=== PATIENT | male | born 1980 | race Caucasian/White ===

== ENCOUNTER 2016-10-13 10:05 | Emergency (ER) | payer OTHER ==
[2016-10-13] MEDS ORDERED: Ondansetron 4 MG/2 ML SDV IVPUSH ONE (10:46)
[2016-10-13] MEDS ORDERED: HYDROmorphone 1 MG/ML Syringe IVPUSH ONE ×2 (10:47→11:53)
[2016-10-13] MEDS: Sodium Chloride 0.9% 10 ML Syringe FLUSH PRN ×2 (10:55→12:01)
--- NOTE | 2016-10-13 10:56 | EDM.PDOC ---
ED HPI LOWER BACK PAIN/INJURY - General Chief Complaint: Back Pain or Injury Stated Complaint: BACK AND LT SIDE PAIN Time Seen by Provider: 10/13/16 10:56 Source: Reports: Patient, Family History Limitations: Reports: No limitations - History of Present Illness INITIAL COMMENTS - FREE TEXT/NARRATIVE: pt arrived with very severe pain in in the lower back. He is now having acute pain the left abdoman and flank. Timing/Duration: Reports: Hour(s):, Getting worse Location: Reports: lower, other (pt has a known disc in the L4_L5 area. ) Quality: Reports: Sharp Severity: moderate Place: other (no definite injury.) Associated Symptoms: Reports: Denies symptoms - Related Data Allergies/ADRs: Allergies Allergy/AdvReac Type Severity Reaction Status Date / Time eggs Allergy Severe Nausea Uncoded 06/17/16 12:28 nuts Allergy Severe Anaphylactic Uncoded 06/17/16 12:28 Shock Home Meds: Home Meds Allopurinol [Zyloprim] 300 mg PO DAILY 03/27/13 [History] Lisinopril 20 mg PO DAILY 03/27/13 [History] Gluc HCl/Csa/Clair Hy/Hyalur Ac [Glucosamine Chondroitin] 2 tab PO BEDTIME [History] Vit C/George & Celery Ex/Grp E [Tart George] 2 cap PO BEDTIME 04/16/15 [History] atorvaSTATin [Lipitor] 40 mg PO BEDTIME 04/16/15 [History] buPROPion [Wellbutrin XL] 150 mg PO BEDTIME 10/13/16 [History] metFORMIN [Glucophage] 1,000 mg PO BIDMEALS 10/13/16 [History] Past Medical History Cardiovascular History: Reports: High cholesterol, Hypertension Neurological History: Reports: Concussion Endocrine/Metabolic History: Reports: Diabetes, type II - Infectious Disease History Infectious Disease History: Reports: Chicken pox - Past Surgical History Other HEENT Surgeries/Procedures: adnoids GI Surgical History: Reports: Appendectomy Other Musculoskeletal Surgeries/Procedures:: hx gout r knee drained recently. Finished predensone first of Feb. Social & Family History - Tobacco Use Smoking Status *Q: Never Smoker Second Hand Smoke Exposure: No - Caffeine Use Caffeine Use: Reports: Coffee, Soda, Tea - Alcohol Use Days Per Week of Alcohol Use: 0 - Recreational Drug Use Recreational Drug Use: No ED ROS GENERAL - Review of Systems Review Of Systems: See Below Constitutional: Reports: decreased appetite HEENT: Reports: No symptoms Respiratory: Reports: No Symptoms Cardiovascular: Reports: No symptoms Endocrine: Reports: no symptoms GI/Abdominal: Reports: Abdominal pain, Other (pt has flank pain on the left and this pain extends down the abdoman to the groin. He has not had any vomiting . He had a bm yesterday. He has no urine symptoms. ) : Reports: no symptoms Musculoskeletal: Reports: other ( tender in the left cva area. ) Skin: Reports: no symptoms ED EXAM,LOWER BACK PAIN/INJURY - Physical Exam Exam: See Below Text/Narrative:: pt arrived with very severe back pain and left flank He states the flank pain radiates down the abdoman. Exam Limited By: No limitations General Appearance: alert, severe distress Ears: normal TMs Nose: normal inspection Throat/Mouth: Normal inspection Head: atraumatic Neck: normal inspection Respiratory/Chest: no respiratory distress Cardiovascular: regular rate, rhythm GI/Abdominal: tender, other ( no true guarding present. ) Rectal (Males) Exam: Deferred Back Exam: CVA tenderness (L) Extremities: normal inspection Course - Vital Signs Last Recorded V/S: Last Vital Signs Temp 36.4 C 10/13/16 10:25 Pulse 81 10/13/16 12:03 Resp 15 10/13/16 10:25 BP 149/95 H 10/13/16 12:03 Pulse Ox 93 L 10/13/16 12:03 - Orders/Labs/Meds Orders: Active Orders 24 hr Category Date Time Status Iopamidol [Isovue-300 (61%)] Med 10/13/16 12:31 Active 150 ml IV . DIRECTED PRN Sodium Chloride 0.9% [Normal Saline] 85 ml Med 10/13/16 12:45 Active IV ASDIRECTED Sodium Chloride 0.9% [Saline Flush] Med 10/13/16 10:45 Active 10 ml FLUSH ASDIRECTED PRN Saline Lock Insert [OM.PC] Routine Oth 10/13/16 10:45 Ordered Medication Orders Sodium Chloride (Normal Saline) 85 mls @ 3.5 mls/sec IV ASDIRECTED LUDA Stop: 10/13/16 23:00 Last Admin: 10/13/16 12:43 Dose: 3.5 mls/sec Iopamidol (Isovue-300 (61%)) 150 ml IV . DIRECTED PRN PRN Reason: RADIOLOGY EXAM Stop: 10/14/16 12:32 Last Admin: 10/13/16 12:43 Dose: 150 ml Sodium Chloride (Saline Flush) 10 ml FLUSH ASDIRECTED PRN PRN Reason: Keep Vein Open Last Admin: 10/13/16 12:01 Dose: 10 ml Admin: 10/13/16 10:55 Dose: 10 ml Labs: Laboratory Tests 10/13/16 10/13/16 10/13/16 Range/Units 10:44 10:50 10:50 WBC 8.8 (4.5-11.0) K/uL RBC 4.99 (4.30-5.90) M/uL Hgb 15.1 H (12.0-15.0) g/dL Hct 42.2 (40.0-54.0) % MCV 85 (80-98) fL MCH 30 (27-31) pg MCHC 36 (32-36) % Plt Count 213 (150-400) K/uL Neut % (Auto) 62 (36-66) % Lymph % (Auto) 26 (24-44) % [place] % (Auto) 9 H (2-6) % Eos % (Auto) 3 (2-4) % Baso % (Auto) 1 (0-1) % Sodium 139 L (140-148) mmol/L Potassium 4.2 (3.6-5.2) mmol/L Chloride 103 (100-108) mmol/L Carbon Dioxide 29 (21-32) mmol/L Anion Gap 11.2 (5.0-14.0) mmol/L BUN 14 (7-18) mg/dL Creatinine 1.1 (0.8-1.3) mg/dL Est Cr Clr Drug Dosing 105.86 mL/min Estimated GFR (MDRD) > 60 (>60) Glucose 123 H (74-106) mg/dL Calcium 8.9 (8.5-10.1) mg/dL Total Bilirubin 0.5 D (0.2-1.0) mg/dL AST 27 (15-37) U/L ALT 62 (12-78) U/L Alkaline Phosphatase 52 (46-116) U/L C-Reactive Protein (0.0-0.3) mg/dL Total Protein 7.9 (6.4-8.2) g/dL Albumin 4.2 (3.4-5.0) g/dL Globulin 3.7 H (2.3-3.5) g/dL Albumin/Globulin Ratio 1.1 L (1.2-2.2) Urine Color Yellow Urine Appearance Clear Urine pH 6.0 (4.5-8.0) Ur Specific [place] 1.010 (1.008-1.030) Urine Protein Negative (NEGATIVE) mg/dL Urine Glucose (UA) Normal (NEGATIVE) mg/dL Urine Ketones Negative (NEGATIVE) mg/dL Urine Occult Blood Negative (NEGATIVE) Urine Nitrite Negative (NEGAITVE) Urine Bilirubin Negative (NEGATIVE) Urine Urobilinogen 1 (NORMAL) mg/dL Ur Leukocyte Esterase Negative (NEGATIVE) Urine RBC Not seen (0-5) Urine WBC Not seen (0-5) Ur Epithelial Cells Not seen Amorphous Sediment Rare Urine Bacteria Not seen Urine Mucus Not seen 10/13/16 Range/Units 10:50 WBC (4.5-11.0) K/uL RBC (4.30-5.90) M/uL Hgb (12.0-15.0) g/dL Hct (40.0-54.0) % MCV (80-98) fL MCH (27-31) pg MCHC (32-36) % Plt Count (150-400) K/uL Neut % (Auto) (36-66) % Lymph % (Auto) (24-44) % [place] % (Auto) (2-6) % Eos % (Auto) (2-4) % Baso % (Auto) (0-1) % Sodium (140-148) mmol/L Potassium (3.6-5.2) mmol/L Chloride (100-108) mmol/L Carbon Dioxide (21-32) mmol/L Anion Gap (5.0-14.0) mmol/L BUN (7-18) mg/dL Creatinine (0.8-1.3) mg/dL Est Cr Clr Drug Dosing mL/min Estimated GFR (MDRD) (>60) Glucose (74-106) mg/dL Calcium (8.5-10.1) mg/dL Total Bilirubin (0.2-1.0) mg/dL AST (15-37) U/L ALT (12-78) U/L Alkaline Phosphatase (46-116) U/L C-Reactive Protein 0.62 H (0.0-0.3) mg/dL Total Protein (6.4-8.2) g/dL Albumin (3.4-5.0) g/dL Globulin (2.3-3.5) g/dL Albumin/Globulin Ratio (1.2-2.2) Urine Color Urine Appearance Urine pH (4.5-8.0) Ur Specific [place] (1.008-1.030) Urine Protein (NEGATIVE) mg/dL Urine Glucose (UA) (NEGATIVE) mg/dL Urine Ketones (NEGATIVE) mg/dL Urine Occult Blood (NEGATIVE) Urine Nitrite (NEGAITVE) Urine Bilirubin (NEGATIVE) Urine Urobilinogen (NORMAL) mg/dL Ur Leukocyte Esterase (NEGATIVE) Urine RBC (0-5) Urine WBC (0-5) Ur Epithelial Cells Amorphous Sediment Urine Bacteria Urine Mucus Meds: Medications Generic Name Dose Route Start Last Admin Trade Name Freq PRN Reason Stop Dose Admin Sodium Chloride 85 mls @ 3.5 mls/sec 10/13/16 12:45 10/13/16 12:43 Normal Saline IV 10/13/16 23:00 3.5 mls/sec ASDIRECTED LUDA Administration Iopamidol 150 ml 10/13/16 12:31 10/13/16 12:43 Isovue-300 (61%) IV 10/14/16 12:32 150 ml . DIRECTED PRN Administration RADIOLOGY EXAM Sodium Chloride 10 ml 10/13/16 10:45 10/13/16 12:01 Saline Flush FLUSH 10 ml ASDIRECTED PRN Administration Keep Vein Open Discontinued Medications Generic Name Dose Route Start Last Admin Trade Name Freq PRN Reason Stop Dose Admin Hydromorphone HCl 1 mg 10/13/16 10:47 10/13/16 10:54 Dilaudid IVPUSH 10/13/16 10:48 1 mg ONETIME ONE Administration Hydromorphone HCl 1 mg 10/13/16 11:53 10/13/16 12:00 Dilaudid IVPUSH 10/13/16 11:54 1 mg ONETIME ONE Administration Hydromorphone HCl 1 mg 10/13/16 14:04 Dilaudid IM 10/13/16 14:05 ONETIME ONE Lorazepam 0.5 mg 10/13/16 11:52 10/13/16 11:57 Ativan IVPUSH 10/13/16 11:53 0.5 mg ONETIME ONE Administration Ondansetron HCl 4 mg 10/13/16 10:46 10/13/16 10:53 Zofran IVPUSH 10/13/16 10:47 4 mg ONETIME ONE Administration - Re-Assessments/Exams Free Text/Narrative Re-Assessment/Exam: 10/13/16 14:11 pt arrived with pain the left flank area and radiating down into the abdoman. He has a known disc at L4_L5 Departure - Departure Time of Disposition: 14:12 Disposition: Home, Self-Care 01 Condition: fair Clinical Impression: Bulging of intervertebral disc between L4 and L5 Referrals: Sravan Eng MD [Primary Care Provider] - Forms: ED Department Discharge Care Plan Goals: cont miralax, high fiber diet, push fluids, percocet 5/325 q6h prn for pain, cont motrin and flexeril 10mg hs, lidocaine patches to low lumbar area. keep appt with Dr Farrell for Monday. - My Orders Last 24 Hours: My Active Orders 10/13/16 10:45 Sodium Chloride 0.9% [Saline Flush] 10 ml FLUSH ASDIRECTED PRN Saline Lock Insert [OM.PC] Routine 10/13/16 12:31 Iopamidol [Isovue-300 (61%)] 150 ml IV . DIRECTED PRN 10/13/16 12:45 Sodium Chloride 0.9% [Normal Saline] 85 ml IV ASDIRECTED - Assessment/Plan Last 24 Hours: My Active Orders 10/13/16 10:45 Sodium Chloride 0.9% [Saline Flush] 10 ml FLUSH ASDIRECTED PRN Saline Lock Insert [OM.PC] Routine 10/13/16 12:31 Iopamidol [Isovue-300 (61%)] 150 ml IV . DIRECTED PRN 10/13/16 12:45 Sodium Chloride 0.9% [Normal Saline] 85 ml IV ASDIRECTED
[2016-10-13] MEDS ORDERED: LORazepam 2 MG/ML MDV IVPUSH ONE (11:52)
[2016-10-13 12:05] VITALS: BP 149/95
[2016-10-13] MEDS ORDERED: Iopamidol 612 MG/ML 150 ML Bottle IV PRN (12:31)
--- NOTE | 2016-10-13 13:33 | CT ---
Abdomen Pelvis w Cont HISTORY: Pain. Dose: DLP 1201 COMPARISON: None. There is diffuse fatty infiltration of the liver. No focal liver lesion seen. The spleen, pancreas, adrenal glands and abdominal aorta appear normal kidneys unremarkable. No bowel obstruction. Pelvis appears unremarkable. Impression: 1. No direct findings for pain. 2. Known disc bulge or protrusion at L4-L5 seen on recent MRI scan of the lumbar spine.
[2016-10-13] MEDS ORDERED: HYDROmorphone 1 MG/ML Syringe IM ONE (14:04)
== END 2016-10-13 14:26 | disposition home or self-care (01) ==
LOC: JP.ED 10:05
DX: M51.26 Other intervertebral disc displacement, lumbar region (principal); I10 Essential (primary) hypertension; E78.00 Pure hypercholesterolemia, unspecified; E11.9 Type 2 diabetes mellitus without complications; Z90.49 Acquired absence of other specified parts of digestive tract; Z79.899 Other long term (current) drug therapy; Z79.84 Long term (current) use of oral hypoglycemic drugs; Z91.018 Allergy to other foods
CPT/HCPCS: 36415; 74177; 80053; 81001; 85025; 86140; 96374; 96375; 96376; 99284; J1170; J2060; J2405; J7030; J7050

== ENCOUNTER 2023-07-31 06:54 | Day surgery (SDC) | payer BC, OTHER ==
[2023-07-31] MEDS ORDERED: Midazolam 1 MG/ML 2 ML SDV ONE (07:09)
[2023-07-31] MEDS ORDERED: Propofol 200 MG/20 ML SDV ONE (07:09)
[2023-07-31] MEDS ORDERED: fentaNYL 100 MCG/2 ML SDV ONE (07:09)
[2023-07-31] MEDS: Lactated Ringers 1,000 ML IV SCH (07:26)
[2023-07-31 07:41] LABS: HEMATOCRIT 43.6 % (38.4-49.7); HEMOGLOBIN 15.5 g/dL (12.9-16.9); MEAN CORPUSCULAR HEMOGLOBIN 31.1 pg (31.6-35.5); MEAN CORPUSCULAR HGB CONC 35.6 g/dL (31.6-35.5); MEAN CORPUSCULAR VOLUME 87.4 fL (81.4-99.0); RED BLOOD CELL COUNT 4.99 M/uL (4.14-5.76); WHITE BLOOD CELL COUNT,WBC 9.1 K/uL (3.2-11.0)
[2023-07-31 08:01] LABS: A/G RATIO 1.1 (1.2-2.2); ALANINE AMINOTRANSFERASE,ALT 46 U/L (12-78); ALBUMIN 3.9 g/dL (3.4-5.0); ALKALINE PHOSPHATASE 52 U/L (46-116); ANION GAP 12.1 mmol/L (5.0-14.0); ASPARTATE AMNIOTRANSFERASE,AST 17 U/L (15-37); BILIRUBIN TOTAL 0.9 mg/dL (0.2-1.0); BLOOD UREA NITROGEN,BUN 12 mg/dL (7-18); CALCIUM 8.4 mg/dL (8.5-10.1); CARBON DIOXIDE,CO2 29 mmol/L (21-32); CHLORIDE,CL 100 mmol/L (100-108); CREATININE 1.3 mg/dL (0.8-1.3); EST CRCL DRUG DOSING (CG) 83.43 mL/min; ESTIMATED GFR 69 mL/min (>60); GLUCOSE RANDOM 144 mg/dL (74-106); POTASSIUM,K 4.1 mmol/L (3.6-5.2); PROTEIN TOTAL,TP 7.5 g/dL (6.4-8.2); SODIUM,NA 137 mmol/L (140-148)
[2023-07-31 10:13] VITALS: BP 111/66; PULSE 68
== END 2023-07-31 10:25 | disposition home or self-care (01) ==
LOC: JP.SDS 06:54
PROVIDERS: ATTEND Student in an Organized Health Care Education/Training Program
DX: Z12.11 Encounter for screening for malignant neoplasm of colon (principal); K63.5 Polyp of colon; I10 Essential (primary) hypertension; E11.9 Type 2 diabetes mellitus without complications; Z88.8 Allergy status to other drugs, medicaments and biological substances; Z91.012 Allergy to eggs; Z91.018 Allergy to other foods
CPT/HCPCS: 36415; 45380; 80053; 85027; 93005; J2250; J2704; J3010; J7120